=== PATIENT | female | born 1995 | race Caucasian/White ===

== ENCOUNTER 2017-11-14 15:48 | Emergency (ER) | payer BC ==
[~2017-11-14] VITALS: Ht 177.8 cm; Wt 118.2 kg
[~2017-11-14 15:48] MED LIST: CEFTIN500 MG PO; CIPRODEX 0.3%-7.5 ML OT; MINOCYCLINE100 MG PO; NO HOME MEDICATIONS
[2017-11-14 15:51] VITALS: BP 142/85; TEMP 97.7
[2017-11-14] MEDS ORDERED: PROVENTIL0.09 MG/A1 IH (15:54)
[2017-11-14] MEDS ORDERED: MONONESSA 35 MC1 TA1 PO (15:54)
[2017-11-14] MEDS ORDERED: LEXAPRO20 MG PO (15:54)
[2017-11-14 17:23] LABS: BASO % 0.2 % (0.0-2.0); EOS # 0.1 (0.0-0.7); EOS % 0.5 % (0-4.0); GRAN # 8.5 (1.4-6.5); HEMATOCRIT 39.9 % (35.0-45.0); HEMOGLOBIN 12.9 g/dl (12.0-15.0); LYMPH # 2.7 (1.2-3.4); LYMPH % 22.1 % (20.0-51.0); MEAN CELL VOLUME 85 fl (80.0-95.0); MEAN CORPUSCULAR HEMOGLOBIN 27 pg (26.0-32.0); MEAN CORPUSCULAR HGB CONC 32 g/dl (33.0-37.0); MEAN PLATELET VOLUME 9.8 fl (7.4-10.4); MONO # 0.9 (0.1-0.6); PLATELET COUNT 314 K/mm3 (130-400); RED BLOOD COUNT 4.72 M/mm3 (4.10-5.30); REDCELL DISTRIBUTION WIDTH-CV 13.3 % (11.5-14.5)
[2017-11-14 17:28] LABS: COLLECTION METHOD CLEAN CATCH
[2017-11-14 17:33] LABS: PH 6 (5-8); URINE APPEARANCE Clear; URINE BILIRUBIN Negative (NEGATIVE); URINE BLOOD Negative (NEGATIVE); URINE COLOR Yellow; URINE GLUCOSE Negative (NEGATIVE); URINE KETONE Negative (NEGATIVE); URINE LEUKOCYTE ESTERASE Negative (NEGATIVE); URINE NITRATE Negative (NEGATIVE); URINE PROTEIN(semi-quant) Negative (NEGATIVE); URINE UROBILINOGEN Negative (NEGATIVE)
[2017-11-14 17:34] LABS: ALBUMIN 4.2 gm/dL (3.5-5.0); BILIRUBIN,TOTAL 0.2 mg/dL (0.0-1.0); CALCIUM 9.2 mg/dL (8.4-10.2); CREATININE, serum 0.77 mg/dL (0.52-1.25); POTASSIUM 3.8 mmol/L (3.4-5.0); TOTAL PROTEIN 7.7 gm/dL (6.4-8.2)
[2017-11-14 17:44] LABS: SQUAMOUS EPITHELIAL 0-2 /hpf; URINE RBC None Seen /hpf
[2017-11-14 19:40] VITALS: PULSE 90
== END 2017-11-14 19:40 | disposition home or self-care (01) ==
LOC: COL.ER 15:48
PROVIDERS: Nurse Practitioner Primary Care
DX: R10.84 Generalized abdominal pain (principal); F32.9 Major depressive disorder, single episode, unspecified; F41.9 Anxiety disorder, unspecified; J45.909 Unspecified asthma, uncomplicated; Z90.89 Acquired absence of other organs
CPT/HCPCS: J1885

== ENCOUNTER 2019-02-01 01:53 | Emergency (ER) | payer BC ==
[~2019-02-01] VITALS: Ht 180.3 cm; Wt 140.9 kg
[~2019-02-01 01:53] MED LIST changes: +LEXAPRO20 MG PO; +MONONESSA 35 MC1 TA1 PO; +PROVENTIL0.09 MG/A1 IH
[2019-02-01 02:04] VITALS: BP 126/80; TEMP 97.3
[2019-02-01] MEDS ORDERED: AMOXICILLIN 50500 MG PO (02:51)
[2019-02-01] MEDS ORDERED: ZOFRAN ODT8 MG PO (02:52)
[2019-02-01] MEDS ORDERED: BUSPAR DIVIDOSE15 MG PO (02:52)
[2019-02-01] MEDS ORDERED: GLUCOPHAGE500 MG/TAB PO (02:52)
[2019-02-01 02:59] LABS: STREP SCREEN NEGATIVE
[2019-02-01] MEDS ORDERED: BENADRYL25 M2 PO (03:06)
[2019-02-01] MEDS ORDERED: SUDAFED30 MG PO (03:06)
[2019-02-01 03:39] VITALS: PULSE 94
== END 2019-02-01 03:40 | disposition home or self-care (01) ==
LOC: COL.ER 01:53
PROVIDERS: Emergency Medicine
DX: H65.03 Acute serous otitis media, bilateral (principal); J45.909 Unspecified asthma, uncomplicated; F12.90 Cannabis use, unspecified, uncomplicated; Z79.84 Long term (current) use of oral hypoglycemic drugs
CPT/HCPCS: A4216; J0696; J1200; J1885; J2405; J3010; J7040

== ENCOUNTER 2019-04-18 02:52 | Emergency (ER) | payer BC ==
[~2019-04-18] VITALS: Ht 167.6 cm; Wt 118.2 kg
[~2019-04-18 02:52] MED LIST changes: +AMOXICILLIN 50500 MG PO; +BENADRYL25 M2 PO; +BUSPAR DIVIDOSE15 MG PO; +GLUCOPHAGE500 MG/TAB PO; +SUDAFED30 MG PO; +ZOFRAN ODT8 MG PO
[2019-04-18 03:05] VITALS: BP 116/47; TEMP 98.9
[2019-04-18] MEDS ORDERED: NORCO 325 MG-51 TAB PO (03:49)
[2019-04-18 04:06] VITALS: PULSE 88
== END 2019-04-18 04:04 | disposition home or self-care (01) ==
LOC: COL.ER 02:52
DX: S82.845A Nondisplaced bimalleolar fracture of left lower leg, initial encounter for closed fracture (principal); J45.909 Unspecified asthma, uncomplicated; W01.0XXA Fall on same level from slipping, tripping and stumbling without subsequent striking against object, initial encounter; Y92.009 Unspecified place in unspecified non-institutional (private) residence as the place of occurrence of the external cause; Y93.02 Activity, running
CPT/HCPCS: Q4045

== ENCOUNTER 2019-05-22 22:12 | Emergency (ER) | payer BC ==
[~2019-05-22] VITALS: Ht 177.8 cm; Wt 145.5 kg
[~2019-05-22 22:12] MED LIST changes: +NORCO 325 MG-51 TAB PO
[2019-05-22 22:16] VITALS: BP 136/98; TEMP 98.9
[2019-05-22] MEDS ORDERED: MOBIC 7.5MG7.5 MG (22:34)
[2019-05-22] MEDS ORDERED: ASPIRIN 81M81 MG/TA2 PO (22:34)
[2019-05-22 22:47] LABS: BASO % 0.4 % (0.0-2.0); EOS # 0.2 (0.0-0.7); EOS % 1.8 % (0-4.0); GRAN # 6.8 (1.4-6.5); GRAN % 59.9 % (42.2-75.2); HEMATOCRIT 40.3 % (37.0-47.0); HEMOGLOBIN 12.8 g/dl (12.5-16.0); LYMPH # 3.3 (1.2-3.4); LYMPH % 28.7 % (20.0-51.0); MEAN CELL VOLUME 80 fl (80.0-100.0); MEAN CORPUSCULAR HEMOGLOBIN 25 pg (27.0-31.0); MEAN CORPUSCULAR HGB CONC 32 g/dl (33.0-37.0); MONO % 8.9 % (1.7-9.3); PLATELET COUNT 314 K/mm3 (130-400); RED BLOOD COUNT 5.04 M/mm3 (4.10-5.30); REDCELL DISTRIBUTION WIDTH-CV 15.4 % (11.5-14.5)
[2019-05-22 22:57] LABS: ACETAMINOPHEN < 10 ug/mL (10-30); ALANINE AMINOTRANSFERASE 21 U/L (9-52); ALBUMIN 4.5 gm/dL (3.5-5.0); ALCOHOL(ethanol),MEDICAL < 10 mg/dL; ALKALINE PHOSPHATASE 103 U/L (50-136); ANION GAP 10 mmol/L (7-16); AST,SGOT 25 U/L (15-37); BILIRUBIN,TOTAL 0.1 mg/dL (0.0-1.0); BLOOD UREA NITROGEN 16 mg/dL (7-17); CALCIUM 9.4 mg/dL (8.4-10.2); CARBON DIOXIDE 29 mmol/L (22-30); CHLORIDE 103 mmol/L (98-107); CREATININE, serum 1.01 (0.52-1.25); GLUCOSE 99 mg/dL (74-106); POTASSIUM 4.2 mmol/L (3.4-5.0); SALICYLATE < 1.0 mg/dL; SODIUM 142 mmol/L (137-145)
[2019-05-22 23:09] LABS: COLLECTION METHOD CLEAN CATCH
[2019-05-22 23:18] LABS: MUCOUS Present /lpf; PH 6 (5-8); SQUAMOUS EPITHELIAL 0-2 /hpf; URINE APPEARANCE Hazy; URINE BACTERIA None Seen /hpf; URINE BILIRUBIN Negative (NEGATIVE); URINE BLOOD 3+ (NEGATIVE); URINE COLOR Yellow; URINE GLUCOSE Negative (NEGATIVE); URINE KETONE Negative (NEGATIVE); URINE LEUKOCYTE ESTERASE Negative (NEGATIVE); URINE NITRATE Negative (NEGATIVE); URINE PROTEIN(semi-quant) Negative (NEGATIVE); URINE RBC >50 /hpf; URINE UROBILINOGEN Negative (NEGATIVE)
[2019-05-22 23:23] LABS: TRICYCLIC ANTIDEPRESS URINE NEGATIVE
[2019-05-23 01:20] VITALS: PULSE 90
== END 2019-05-23 01:20 | disposition home or self-care (01) ==
LOC: COL.ER 22:12
PROVIDERS: Physician Assistant
DX: F32.9 Major depressive disorder, single episode, unspecified (principal); F12.90 Cannabis use, unspecified, uncomplicated; Z90.49 Acquired absence of other specified parts of digestive tract; Z79.82 Long term (current) use of aspirin

== ENCOUNTER → 2020-09-30 | Outpatient (RCR) | payer OTHER ==
[~2020-09-30] MED LIST changes: +ASPIRIN 81M81 MG/TA2 PO; +MOBIC 7.5MG7.5 MG
== END | disposition home or self-care (01) ==
LOC: WSOH
DX: S93.402A Sprain of unspecified ligament of left ankle, initial encounter (principal); S93.401A Sprain of unspecified ligament of right ankle, initial encounter; S80.11XA Contusion of right lower leg, initial encounter; Z98.1 Arthrodesis status; Y99.0 Civilian activity done for income or pay

== ENCOUNTER 2020-10-31 16:15 | Outpatient (RCR) | payer OTHER | END 2020-11-11 10:52 | disposition home or self-care (01) | LOC: WSC 16:15 | DX: S93.402A Sprain of unspecified ligament of left ankle, initial encounter (principal); S93.401A Sprain of unspecified ligament of right ankle, initial encounter; S80.11XA Contusion of right lower leg, initial encounter ==

== ENCOUNTER 2020-11-04 12:46 | Outpatient (RCR) | payer OTHER | END 2020-11-05 14:32 | disposition home or self-care (01) | LOC: WSOH 12:46 | DX: S93.402D Sprain of unspecified ligament of left ankle, subsequent encounter (principal); S93.401D Sprain of unspecified ligament of right ankle, subsequent encounter; S80.11XD Contusion of right lower leg, subsequent encounter; Z98.890 Other specified postprocedural states; Y99.0 Civilian activity done for income or pay ==

== ENCOUNTER 2021-02-01 13:02 | Emergency (ER) | payer BC ==
[~2021-02-01] VITALS: Ht 180.3 cm; Wt 133.6 kg
[2021-02-01 13:11] VITALS: TEMP 98.9
[2021-02-01 13:35] LABS: BASO % 0.4 % (0.0-2.0); EOS # 0.1 (0.0-0.7); EOS % 0.8 % (0-4.0); GRAN # 7.9 (1.4-6.5); GRAN % 70.8 % (42.2-75.2); HEMATOCRIT 44.6 % (37.0-47.0); HEMOGLOBIN 14.9 g/dl (12.5-16.0); LYMPH # 2.4 (1.2-3.4); LYMPH % 21.9 % (20.0-51.0); MEAN CELL VOLUME 85 fl (80.0-100.0); MEAN CORPUSCULAR HEMOGLOBIN 28 pg (27.0-31.0); MEAN CORPUSCULAR HGB CONC 33 g/dl (33.0-37.0); MEAN PLATELET VOLUME 9.9 fl (7.4-10.4); MONO # 0.7 (0.1-0.6); MONO % 5.8 % (1.7-9.3); PLATELET COUNT 345 K/mm3 (130-400); RED BLOOD COUNT 5.24 M/mm3 (4.10-5.30); REDCELL DISTRIBUTION WIDTH-CV 13.2 % (11.5-14.5)
[2021-02-01 13:38] LABS: COLLECTION METHOD CLEAN CATCH
[2021-02-01 13:44] LABS: ALBUMIN 4.5 gm/dL (3.5-5.0); BILIRUBIN,TOTAL 0.4 mg/dL (0.0-1.0); CALCIUM 9.1 mg/dL (8.4-10.2); CREATININE, serum 0.67 (0.52-1.25); POTASSIUM 3.6 mmol/L (3.4-5.0); TOTAL PROTEIN 8.2 gm/dL (6.4-8.2)
[2021-02-01 13:45] LABS: MUCOUS Present /lpf; PH 5 (5-8); SQUAMOUS EPITHELIAL None Seen /hpf; URINE APPEARANCE Clear; URINE BACTERIA None Seen /hpf; URINE BILIRUBIN Negative (NEGATIVE); URINE BLOOD 1+ (NEGATIVE); URINE COLOR Yellow; URINE GLUCOSE Negative (NEGATIVE); URINE KETONE 1+ (NEGATIVE); URINE LEUKOCYTE ESTERASE Negative (NEGATIVE); URINE NITRATE Negative (NEGATIVE); URINE PROTEIN(semi-quant) Negative (NEGATIVE); URINE RBC 0-2 /hpf; URINE UROBILINOGEN Negative (NEGATIVE)
[2021-02-01] MEDS ORDERED: NORCO 325 MG-51 TAB PO (14:19)
[2021-02-01 14:42] VITALS: BP 137/71; PULSE 91
== END 2021-02-01 14:42 | disposition home or self-care (01) ==
LOC: COL.ER 13:02
PROVIDERS: Physician Assistant
DX: N92.0 Excessive and frequent menstruation with regular cycle (principal); F32.9 Major depressive disorder, single episode, unspecified; Z32.02 Encounter for pregnancy test, result negative; Z79.51 Long term (current) use of inhaled steroids; Z79.82 Long term (current) use of aspirin; Z79.899 Other long term (current) drug therapy
CPT/HCPCS: J1885; J2405; J7030